=== PATIENT | female | born 1955 | race Caucasian/White ===

== ENCOUNTER → 2016-12-06 | Outpatient (CLI) | payer BC ==
--- NOTE | 2016-12-07 08:12 | MAMMOGRAPHY REPORT ---
BILATERAL DIGITAL SCREENING MAMMOGRAM TOMOSYNTHESIS WITH CAD: 12/06/2016 CLINICAL HISTORY: Routine screening. Patient has no complaints. TECHNIQUE: Breast tomosynthesis in addition to standard 2D mammography was performed. Current study was also evaluated with a Computer Aided Detection (CAD) system. COMPARISON: Comparison is made to exams dated: 12/04/2015 mammogram, 12/02/2014 mammogram, 11/29/2013 m ammogram, 12/06/2012 mammogram, 11/28/2012 mammogram, and 11/28/2011 mammogram - [facility] enter. BREAST COMPOSITION: The tissue of both breasts is heterogeneously dense, which may obscure small mas ses. FINDINGS: There is a 5 mm nodular asymmetry in the inferior left breast, only definitely seen on the MLO view, for which additional spot compression to the symphysis views and possible ultrasound are r ecommended. No other suspicious mass, architectural distortion or cluster of microcalcifications is seen bilatera lly. IMPRESSION: ACR BI-RADS CATEGORY 0: INCOMPLETE EVALUATION: NEED ADDITIONAL IMAGING EVALUATION The 5 mm nodular asymmetry in the inferior left breast needs additional evaluation. The patient will be called to schedule an appointment. Approximately 10% of breast cancers are not detected with mammography. A negative mammographic report should not delay biopsy if a clinically suggestive mass is present. Kalli Yen M.D. ay/:12/06/2016 18:13:56 Tower Truck Driver: Lorenza STONER(Sabra)(Vazquez)([place]), [facility] letter sent: Addl Imaging 0 BI-RADS Code: ACR BI-RADS Category 0: Incomplete Evaluation: Need Additional Imaging Evaluation
== END | disposition home or self-care (01) ==
LOC: C.MAMM 10:30
PROVIDERS: ATTEND Obstetrics & Gynecology
DX: Z12.31 Encounter for screening mammogram for malignant neoplasm of breast (principal); R92.8 Other abnormal and inconclusive findings on diagnostic imaging of breast

== ENCOUNTER → 2016-12-15 | Outpatient (CLI) | payer BC ==
--- NOTE | 2016-12-15 13:56 | MAMMOGRAPHY REPORT ---
UNILATERAL LEFT DIGITAL DIAGNOSTIC MAMMOGRAM TOMOSYNTHESIS AND TARGETED LEFT ULTRASOUND: 12/15/2016 CLINICAL HISTORY: Callback from screening mammogram for left breast asymmetry. TECHNIQUE: Breast tomosynthesis in addition to standard 2D mammography was performed. Spot compress ion left CC and MLO 2-D and tomosynthesis images were obtained. COMPARISON: Comparison is made to exams dated: 12/06/2016 mammogram, 12/04/2015 mammogram, 12/02/2014 m ammogram, 11/29/2013 mammogram, 12/06/2012 mammogram, and 12/06/2012 ultrasound - [facility]. BREAST COMPOSITION: The tissue of the left breast is heterogeneously dense, which may obscure small masses. FINDINGS: The previously described asymmetry in the left inferior breast effaces to a baseline appea luke on the additional spot compression views, with appearance of this region similar to some of the prior exams including the 2010 exam. On the tomosynthesis images, the asymmetry has the appearance of normal fibroglandular tissue without a discrete mass seen. Incidentally noted on the cc tomosynth esis images is a benign-appearing circumscribed 4 mm mass in the left lower inner quadrant. Targeted ultrasound was performed of the left inferior breast in the region of the mammographic asymm etry. No suspicious masses or other suspicious sonographic abnormalities are evident. No sonographi c correlate for the mammographic asymmetry is seen. Incidentally noted in the left 7:00 periareolar breast is an oval circumscribed anechoic 3 x 4 mm mass. This corresponds with the incidental mass se en within the left medial breast on the tomosynthesis images and is consistent with a benign cyst. A nterior to this mass in the left 7:00 periareolar breast is an oval anechoic circumscribed benign sim ple cyst measuring 3 x 2 mm. IMPRESSION: ACR BI-RADS CATEGORY 2: BENIGN, TARGETED ULTRASOUND ACR BI-RADS CATEGORY 2: BENIGN The left inferior breast asymmetry effaces to a baseline appearance on the additional images, without a corresponding suspicious sonographic abnormality evident. Findings are benign and felt to represe nt normal fibroglandular tissue. There is no mammographic or targeted sonographic evidence of malign darian. A 1 year screening mammogram is recommended. The patient has been verbally notified of the res ults. Approximately 10% of breast cancers are not detected with mammography. A negative mammographic report should not delay biopsy if a clinically suggestive mass is present. Myranda Lubin M.D. ah/:12/15/2016 08:53:55 [employer] Scoreboard Operator: Consuelo Luis [facility] letter sent: Normal 1/2 BI-RADS Code: ACR BI-RADS Category 2: Benign Ultrasound BI-RADS: ACR BI-RADS Category 2: Benign
== END | disposition home or self-care (01) ==
LOC: C.MAMM 08:27
PROVIDERS: ATTEND Obstetrics & Gynecology
DX: Z12.31 Encounter for screening mammogram for malignant neoplasm of breast (principal); N64.89 Other specified disorders of breast

== ENCOUNTER → 2016-12-19 | Outpatient (CLI) | payer BC | END | disposition home or self-care (01) | LOC: C.MAMM 15:17 | PROVIDERS: ATTEND Nurse Practitioner Family | DX: M85.88 Other specified disorders of bone density and structure, other site (principal); M85.852 Other specified disorders of bone density and structure, left thigh; M81.0 Age-related osteoporosis without current pathological fracture; Z78.0 Asymptomatic menopausal state ==

== ENCOUNTER 2017-01-23 05:03 | Emergency (ER) | payer BC ==
[~2017-01-23] VITALS: Ht 162.6 cm; Wt 62.1 kg
[~2017-01-23 05:03] MED LIST: AMOX250C3 PO; NEOM1SUS21 OT
[2017-01-23 05:14] VITALS: TEMP 36.6; Ht 162.6 cm; Wt 62.1 kg
[2017-01-23] MEDS ORDERED: KETOROLAC TROMETHAMINE 30 MG/ML VIAL IV STA (05:20)
[2017-01-23] MEDS ORDERED: LORAZEPAM 2 MG/ML 1 ML VIAL IV STA (05:20)
[2017-01-23 05:56] LABS: BASO % 0.5 %; BASO ABS # 0.03 K/uL (0-0.2); COMPLETE YES; EOS % 1.9 %; HEMATOCRIT 39.8 % (37-47); IG% 0.3 %; LYMPH % 36.1 %; LYMPH ABS # 2.29 K/uL (1.2-3.4); MEAN CORPUSCULAR HGB CONC 34.4 g/dl (32-36); MONO % 5.2 %; PLATELET COUNT 257 K/uL (130-400); RED BLOOD COUNT 4.42 M/uL (4.2-5.4); WHITE BLOOD COUNT 6.35 K/uL (4.8-10.8)
[2017-01-23] MEDS ORDERED: OXYCODONE IR HOME PACK PO ONE (06:00)
[2017-01-23 06:03] VITALS: BP 127/76; PULSE 78; O2SAT 100
[2017-01-23 06:18] LABS: ALT/SGPT 20 U/L (12-78); BLOOD UREA NITROGEN 12 mg/dl (7-18); BUN/CREATININE RATIO 9.8 (10-20); CARBON DIOXIDE 19 mmol/L (21-32); CHLORIDE 100 mmol/L (98-107); CREATININE 1.18 mg/dl (0.60-1.20); GLUCOSE 189 mg/dl (70-99); POTASSIUM 3.3 mmol/L (3.5-5.1); SODIUM 134 mmol/L (136-145)
[2017-01-23 06:21] LABS: ALKALINE PHOSPHATASE 106 U/L (45-117); AST/SGOT 19 U/L (15-37)
--- NOTE | 2017-01-23 06:25 | EMERGENCY ROOM VISIT NOTE ---
History First contact with patient: 05:11 Chief Complaint: ALLERGIC REACTION Stated Complaint: HAVING REACTION TO MEDICATION History of Present Illness The patient is a 61 year old female who presents to the Emergency Room with complaints of feeling shaky, short of breath and tingling to her extremities. Patient states she's been having problems with her ear and was diagnosed with otitis yesterday. Patient states she could not sleep tonight secondary to pain. Patient states she took Tylenol at midnight and tried a heating pad. Patient ended up getting up at 4 AM and started stressing over this. She then took her Fosamax and the pain persisted. Patient then felt short of breath with tingling to extremities. Patient is currently on amoxicillin and neomycin for the ear infection. Patient denies chest pain, rash, cough, throat tightness , facial swelling, tongue swelling, abdominal pain. Patient has had Fosamax for a while now. Review of Systems See HPI for pertinent positives & negatives. A total of 10 systems reviewed and were otherwise negative. Past Medical/Surgical History Osteopenia, hypertension Social History Smoking Status: Never Smoker Drug Use: none Marital Status: Housing Status: lives with family Physical Exam Vital Signs Date Time Temp Pulse Resp B/P (MAP) Pulse Ox O2 Delivery O2 Flow Rate FiO2 01/23/17 05:40 Room Air 01/23/17 05:33 Room Air 01/23/17 05:33 Room Air 01/23/17 05:15 93 01/23/17 05:14 36.6 92 20 120/67 99 Room Air Physical Exam VITALS: Vitals are noted on the nurse's note and reviewed by myself. Vital signs stable. GENERAL: White female tremulous anxious-appearing, in no acute distress, nondiaphoretic, well-developed well-nourished. SKIN: The skin was without rashes, erythema, edema, or bruising. There is no tenting of the skin. Capillary reflex less than 2 seconds. HEAD: Normocephalic atraumatic. EARS: Right External auditory canals clear, tympanic membranes pearly healy without erythema or effusion. Left auditory canal erythematous edematous concerning for infection, TM intact. No mastoid tenderness Bilaterally. EYES: Pupils equal round and reactive to light and accommodation. Conjunctivae without injection, sclerae without icterus. Extraocular movements intact. NOSE: Patent, turbinates without inflammation or discharge. No sinus tenderness. MOUTH: Mucous membranes moist. Pharynx without erythema or exudate. Uvula midline. Airway patent. Tongue does not deviate. NECK: Supple without nuchal rigidity. No lymphadenopathy. No thyromegaly. Cervical spine is nontender. No JVD. HEART: Regular rate and rhythm LUNGS: Clear to auscultation bilaterally without wheezes, rales or rhonchi. No dullness to percussion. No retractions or accessory muscle use. ABDOMEN: Positive bowel sounds x 4. Normal tympanic percussion. Soft, nontender, without masses or organomegaly. Chan sign negative. No guarding or rebound tenderness. MUSCULOSKELETAL: No muscle atrophy, erythema, or edema noted. NEURO: Patient was alert and oriented to person place and time. Normal sensation to light and sharp touch. No focal neurological deficits. Psych: Pleasant anxious-appearing female Medical Decision & Procedures Laboratory Results 01/23/17 05:33 Red Blood Count 4.42, Mean Corpuscular Volume 90.0, Mean Corpuscular Hemoglobin 31.0, Mean Corpuscular Hemoglobin Concent 34.4, Mean Platelet Volume 10.0, Neutrophils (%) (Auto) 56.0, Lymphocytes (%) (Auto) 36.1, Monocytes (%) (Auto) 5.2, Eosinophils (%) (Auto) 1.9, Basophils (%) (Auto) 0.5, Neutrophils # (Auto) 3.56, Lymphocytes # (Auto) 2.29, Monocytes # (Auto) 0.33, Eosinophils # (Auto) 0.12, Basophils # (Auto) 0.03 01/23/17 05:33 Test 01/23/17 05:33 01/23/17 05:35 White Blood Count 6.35 K/uL (4.8-10.8) Red Blood Count 4.42 M/uL (4.2-5.4) Hemoglobin 13.7 g/dL (12.0-16.0) Hematocrit 39.8 % (37-47) Mean Corpuscular Volume 90.0 fL (80-100) Mean Corpuscular Hemoglobin 31.0 pg (25-34) Mean Corpuscular Hemoglobin Concent 34.4 g/dl (32-36) Platelet Count 257 K/uL (130-400) Mean Platelet Volume 10.0 fL (7.4-10.4) Neutrophils (%) (Auto) 56.0 % Lymphocytes (%) (Auto) 36.1 % Monocytes (%) (Auto) 5.2 % Eosinophils (%) (Auto) 1.9 % Basophils (%) (Auto) 0.5 % Neutrophils # (Auto) 3.56 K/uL (1.4-6.5) Lymphocytes # (Auto) 2.29 K/uL (1.2-3.4) Monocytes # (Auto) 0.33 K/uL (0.11-0.59) Eosinophils # (Auto) 0.12 K/uL (0-0.5) Basophils # (Auto) 0.03 K/uL (0-0.2) RDW Standard Deviation 44.3 fL (36.4-46.3) RDW Coefficient of Variation 13.5 % (11.5-14.5) Immature Granulocyte % (Auto) 0.3 % Immature Granulocyte # (Auto) 0.02 K/uL (0.00-0.02) Anion Gap 15.0 mmol/L (3-11) Est Creatinine Clear Calc Drug Dose 42.2 ml/min Estimated GFR () 56.8 Estimated GFR (Non- 49.0 BUN/Creatinine Ratio 9.8 (10-20) Calcium Level 9.0 mg/dl (8.5-10.1) Total Bilirubin 0.4 mg/dl (0.2-1) Direct Bilirubin < 0.1 mg/dl (0-0.2) Aspartate Amino Transf (AST/SGOT) 19 U/L (15-37) Alanine Aminotransferase (ALT/SGPT) 20 U/L (12-78) Alkaline Phosphatase 106 U/L (45-117) Total Protein 7.9 gm/dl (6.4-8.2) Albumin 4.0 gm/dl (3.4-5.0) Bedside Troponin I < 0.030 ng/ml (0-0.045) Medications Administered Medications (Trade) Dose Ordered Sig/Meghan Route Start Time Stop Time Status Last Admin Dose Admin Lorazepam (Ativan Inj) 1 mg NOW STAT IV 01/23/17 05:20 01/23/17 05:22 DC 01/23/17 05:32 1 MG Ketorolac Tromethamine (Toradol Inj) 30 mg NOW STAT IV 01/23/17 05:20 01/23/17 05:24 DC 01/23/17 05:33 30 MG ED Course Prior records/ancillary studies reviewed. Triage Nursing notes reviewed. Additional history obtained from the family. The patient's history was concerning for tingling in extremities and feeling short of breath with ear pain. Differential diagnosis: Etiologies such as anxiety attack, infections, reactive airway disease, pneumonia, pneumothorax, COPD, CHF, cardiac ischemia, pulmonary embolism, musculoskeletal, as well as others were entertained. Physical examination: As above. ER treatment provided: Ativan, Toradol On reassessment the patient felt better. Diagnostic interpretation by me: The electrocardiogram was negative for acute ischemic or pathologic change. Normal sinus, normal intervals, no acute ST-T wave changes. Impression normal sinus rhythm interpreted by myself. The labs revealed no leukocytosis, neg trop. Hyperglycemia without DKA Imaging studies: Chest x-ray with no acute consolidation, pneumothorax or free air per my interpretation This appears to be consistent with anxiety secondary to her ear pain. Patient was advised to follow-up family care for the elevated glucose at could be stress related from the anxiety attack. She is well-appearing. Patient was neurovascularly and neurologically intact. No signs of allergic reaction. She is advised to rest, decrease stress and to take medications as directed. She is advised follow-up family care in a few days or here in the ER sooner for chest pain, difficulty breathing, worsening signs or symptoms or as needed.. By the evaluation outlined above emergent etiologies such as CHF, cardiac ischemia, pulmonary embolism, reactive airway disease, pneumonia, pneumothorax, musculoskeletal, serious bacterial infections, as well as others were deemed relatively unlikely. The pt informed about the findings as listed above. All questions were answered and pleased with the treatment. Return instructions were outlined and the patient was discharged in stable condition. Outpatient prescription management: OxyIR Referral: The patient was referred back to their primary care physician for follow-up in 2 to 3 days for a recheck of the current condition. Case reviewed by attending Medical Decision As above Medication Reconcilliation Current Medication List: was personally reviewed by me Blood Pressure Screening Patient's blood pressure: Normal blood pressure Impression Primary Impression: Anxiety attack Additional Impressions: Hyperglycemia Hypokalemia Departure Information Dispostion Home / Self-Care Condition GOOD Referrals Chelle Crespo, C.R.N.P. (PCP) Patient Instructions My [facility] Additional Instructions DO NOT drive, drink alcohol, operate machinery, or perform dangerous activities today. You were given medications in the ER that can affect your ability to safely function or operate a vehicle. Your blood sugar was slightly high today. Recheck this with family care for possible diabetes. Oxycodone (OxyIR) 5mg: Take 1/2-1 pills every four hours for breakthrough pain. Avoid alcohol, operating machinery or dangerous equipment, working on ladders or roofs, DRIVING, or situations where being under the influence may be dangerous. It is recommended to use an [id number] stool softener such as Colace, 100mg twice daily while taking this medication to avoid constipation. Ibuprofen(Motrin, Advil) may be used for fever or pain. Use 600mg every six hours as needed. Take with food. Avoid using more than 2400mg in a 24 hour period. Do not use 2400mg per day for more than three consecutive days without physician direction. Prolonged inappropriate use can lead to stomach upset or ulcers. (AND/OR) Acetaminophen(Tylenol) may be used for fever or pain. Use 1000mg every six hours as needed. Avoid using more than 3000mg in a 24 hour period. Rest and drink plenty of fluids as tolerated. Continue current medications. Return to the ER immediately for worsening or persistent feeling shaky, abdominal pain, vomiting, fevers, chest pains, difficulty breathing, worsening of your condition, or as needed. Follow up with your primary physician in 2-3 days for a recheck of your current condition. Problem Qualifiers
[2017-01-23] MEDS ORDERED: ALEN5TAB2 PO (06:36)
[2017-01-23] MEDS ORDERED: CHOL1000 PO (06:36)
[2017-01-23] MEDS ORDERED: LISI10TA PO (06:36)
[2017-01-23] MEDS ORDERED: MULTCAP7 PO (06:36)
[2017-01-23] MEDS ORDERED: CALC-20 PO (06:36)
[2017-01-23] MEDS ORDERED: FLUT0.15 NAE (06:38)
--- NOTE | 2017-01-23 07:50 | DIAGNOSTIC IMAGING REPORT ---
CHEST ONE VIEW PORTABLE HISTORY: Short of breath. COMPARISON: None. FINDINGS: The lungs are clear. Cardiac silhouette is normal in size. No pleural effusions. No pneumothorax. IMPRESSION: No acute process. Electronically signed by: Damion Wright M.D. 01/23/2017 7:48 AM Dictated Date/Time: 01/23/2017 7:43 AM
== END 2017-01-23 06:41 | disposition home or self-care (01) ==
LOC: C.EDB 05:04 → C.EDA 06:41
DX: F41.0 Panic disorder [episodic paroxysmal anxiety] (principal); R73.9 Hyperglycemia, unspecified; E87.6 Hypokalemia